=== PATIENT | female | born 1995 | race American Indian/Alaskan Native ===

== ENCOUNTER 2020-10-18 08:19 | Emergency (ER) | payer SELFPAY ==
[2020-10-18 08:30] VITALS: BP 145/98
[2020-10-18 12:08] LABS: Basophils # (Auto) 0.1 K/mm3 (0.0-0.1); Basophils % (Auto) 0.6 % (0.0-1.8); Eosinophils # (Auto) 0.1 K/mm3 (0.0-0.4); Eosinophils % (Auto) 0.7 % (0.0-4.3); Hematocrit 38.3 % (30.3-42.9); Hemoglobin 12.3 gm/dl (10.1-14.3); Lymphocytes % (Auto) 19.1 % (13.4-35.0); Mean Corpuscular HGB Conc 32 % (30-34); Mean Corpuscular Volume 72 fl (79-97); Monocytes # (Auto) 0.4 K/mm3 (0.0-0.8); Monocytes % (Auto) 3.8 % (0.0-7.3); Platelet Count 522 K/mm3 (140-440); Red Blood Count 5.33 M/mm3 (3.65-5.03); Red Cell Distribution Width 16.1 % (13.2-15.2)
[2020-10-18 12:24] LABS: Alanine Aminotransferase 20 units/L (7-56); Albumin 4.1 g/dL (3.9-5); BUN/Creatinine Ratio 13; Blood Urea Nitrogen 10 mg/dL (7-17); Calcium 9.3 mg/dL (8.4-10.2); Hemolysis Index 0
[2020-10-18] MEDS ORDERED: TETRACAINE 0.5% OPHTH SOLN 4ML OU STA (12:30)
[2020-10-18] MEDS ORDERED: FLUORESCEIN 1 MG STRIP OP ONE (12:30)
[2020-10-18] MEDS ORDERED: ACETAMINOPHEN 500 MG TAB PO ONE (12:30)
--- NOTE | 2020-10-18 12:48 | Emergency Department Report ---
ED General Adult HPI - General Chief complaint: Weakness Stated complaint: EYE PAIN;BACK PAIN;NAUSEA PUI?: Yes Time Seen by Provider: 10/18/20 12:29 Source: patient, EMS, RN notes reviewed Mode of arrival: Ambulatory Limitations: No Limitations - History of Present Illness Initial comments: The patient was evaluated in the emergency department for symptoms described in the history of present illness. He/she was evaluated in the context of the global COVID-19 pandemic, which necessitated consideration that the patient might be at risk for infection with the virus that causes COVID-19. Institutional protocols and algorithms that pertain to the evaluation of patients at risk for COVID-19 are in a state of rapid change based on information released by regulatory bodies including the CDC and federal and state organizations. These policies and algorithms were followed during the patient's care in the emergency department. Please note that these policies, procedures and recommendations changed on a rapid basis. During the entire history and physical examination, I had on complete personal protective equipment. The patient is a 25-year-old female. She is not known to myself previously. She states that she is not , and has not delivered to give her in the past 6 weeks. She does not have a primary care doctor, and denies chronic medical conditions. The patient presents during the midst of the 2022 2020 COVID-19 pandemic. She presents with a complaint of body aches, diarrhea, sore throat, burning eyes, headache, malaise and fatigue. No loss of taste or smell. No chest pain. Positive nausea. No urinary symptoms. Positive dry cough. Has not really taken anything [id number] for this. Does not wear contact lenses. No ocular trauma. No loss of vision. No chemical exposure to the eyes. Symptoms present for 5 to 7 days. -: Gradual, days(s) Location: head, eyes, back, left, right, upper extremity, lower extremity Severity scale (0 -10): 6 Quality: aching Consistency: constant Improves with: none Worsens with: movement - Related Data Previous Rx's Medication Instructions Recorded Last Taken Type Acetaminophen [Non-Aspirin Extra 500 mg PO Q6HR PRN #30 tablet 10/18/20 Unknown Rx Strength] Albuterol Sulfate [Proair 90 mcg IH Q4HR PRN #2 aer.pow.ba 10/18/20 Unknown Rx Respiclick] Ondansetron [Zofran Odt] 4 mg PO Q8HR PRN #20 tab.rapdis 10/18/20 Unknown Rx Allergies Allergy/AdvReac Type Severity Reaction Status Date / Time No Known Allergies Allergy Unverified 10/18/20 08:26 ED Review of Systems ROS: Stated complaint: EYE PAIN;BACK PAIN;NAUSEA Other details as noted in HPI Constitutional: diaphoresis, malaise, weakness Eyes: eye pain. denies: eye discharge ENT: throat pain, congestion Respiratory: cough Gastrointestinal: nausea. denies: abdominal pain Musculoskeletal: back pain, arthralgia, myalgia Neurological: headache ED Past Medical Hx - Past Medical History Previous Medical History?: No - Surgical History Past Surgical History?: No - Social History Smoking Status: Never Smoker Substance Use Type: None - Medications Home Medications: Home Medications Medication Instructions Recorded Confirmed Last Taken Type Acetaminophen [Non-Aspirin Extra 500 mg PO Q6HR PRN #30 tablet 10/18/20 Unknown Rx Strength] Albuterol Sulfate [Proair 90 mcg IH Q4HR PRN #2 aer.pow.ba 10/18/20 Unknown Rx Respiclick] Ondansetron [Zofran Odt] 4 mg PO Q8HR PRN #20 tab.rapdis 10/18/20 Unknown Rx ED Physical Exam - General Limitations: No Limitations General appearance: alert, in no apparent distress - Head Head exam: Present: atraumatic, normocephalic - Eye Eye exam: Present: normal appearance (There is a negative Kelly sign. There is negative fluorescein uptake. There is no direct or consensual photophobia.), PERRL, EOMI, other (Visual acuity intact to finger counting, color perception, reading at a close distance). Absent: scleral icterus, conjunctival injection, nystagmus, periorbital swelling, periorbital tenderness Pupils: Absent: irregular, unequal - ENT ENT exam: Present: normal exam, normal orophraynx, mucous membranes moist, normal external ear exam - Neck Neck exam: Present: normal inspection, full ROM. Absent: tenderness, meningismus - Respiratory Respiratory exam: Present: normal lung sounds bilaterally. Absent: respiratory distress, wheezes, rales, rhonchi, stridor, decreased breath sounds - Cardiovascular Cardiovascular Exam: Present: regular rate, normal rhythm, normal heart sounds. Absent: bradycardia, tachycardia, irregular rhythm, systolic murmur, diastolic murmur, rubs, gallop - GI/Abdominal GI/Abdominal exam: Present: soft. Absent: distended, tenderness, guarding, rebound, rigid, pulsatile mass - Extremities Exam Extremities exam: Present: normal inspection, full ROM, other (2+ pulses noted in the bilateral upper and lower extremities. There is no palpable cord. negative Homans sign. Muscular compartments are soft. The pelvis is stable.). Absent: pedal edema, calf tenderness - Back Exam Back exam: Present: normal inspection, full ROM. Absent: tenderness, CVA tenderness (R), CVA tenderness (L), paraspinal tenderness, vertebral tenderness - Neurological Exam Neurological exam: Present: alert, oriented X3, normal gait, other (No facial droop. Tongue midline. Extraocular movements intact bilaterally. Facial sensation intact to light touch in V1, V2, V3 distribution bilaterally. 5 and a 5 strength in 4 extremities. Sensation intact to light touch in 4 extremi ties.). Absent: motor sensory deficit - Psychiatric Psychiatric exam: Present: normal affect, normal mood - Skin Skin exam: Present: warm, dry, intact, normal color. Absent: rash ED Course Vital Signs 10/18/20 10/18/20 08:26 12:38 Temperature 97.9 F Pulse Rate 107 H Respiratory 20 18 Rate Blood Pressure 145/98 O2 Sat by Pulse 96 Oximetry ED Medical Decision Making - Lab Data Result diagrams: 10/18/20 11:41 10/18/20 11:41 Vital Signs 10/18/20 10/18/20 08:26 12:38 Temperature 97.9 F Pulse Rate 107 H Respiratory 20 18 Rate Blood Pressure 145/98 O2 Sat by Pulse 96 Oximetry Lab Results 10/18/20 10/18/20 10/18/20 Range/Units 11:41 11:41 11:41 WBC 10.6 (4.5-11.0) K/mm3 RBC 5.33 H (3.65-5.03) M/mm3 Hgb 12.3 (10.1-14.3) gm/dl Hct 38.3 (30.3-42.9) % MCV 72 L (79-97) fl MCH 23 L (28-32) pg MCHC 32 (30-34) % RDW 16.1 H (13.2-15.2) % Plt Count 522 H (140-440) K/mm3 Lymph % (Auto) 19.1 (13.4-35.0) % [place] % (Auto) 3.8 (0.0-7.3) % Eos % (Auto) 0.7 (0.0-4.3) % Baso % (Auto) 0.6 (0.0-1.8) % Lymph # (Auto) 2.0 (1.2-5.4) K/mm3 [place] # (Auto) 0.4 (0.0-0.8) K/mm3 Eos # (Auto) 0.1 (0.0-0.4) K/mm3 Baso # (Auto) 0.1 (0.0-0.1) K/mm3 Seg Neutrophils % 75.8 H (40.0-70.0) % Seg Neutrophils # 8.1 H (1.8-7.7) K/mm3 Sodium 139 (137-145) mmol/L Potassium 4.0 (3.6-5.0) mmol/L Chloride 104.0 (98-107) mmol/L Carbon Dioxide 27 (22-30) mmol/L Anion Gap 12 mmol/L BUN 10 (7-17) mg/dL Creatinine 0.8 (0.6-1.2) mg/dL Estimated GFR > 60 ml/min BUN/Creatinine Ratio 13 % Glucose 87 (65-100) mg/dL Calcium 9.3 (8.4-10.2) mg/dL Total Bilirubin 0.60 (0.1-1.2) mg/dL AST 17 (5-40) units/L ALT 20 (7-56) units/L Alkaline Phosphatase 88 (35-129) units/L Total Protein 7.9 (6.3-8.2) g/dL Albumin 4.1 (3.9-5) g/dL Albumin/Globulin Ratio 1.1 % Lipase 30 (13-60) units/L HCG, Qual Negative (Negative) - Medical Decision Making Differential diagnosis, including but not limited to: Viral syndrome, COVID-19 Assessment and plan: 25-year-old female, who is afebrile, with reassuring vital signs, tachycardia resolved on my examination, with probable COVID-19 symptomatology. She is not hypoxic, she walks with a steady gait, breath sounds are clear, and she is not in any acute distress. She is playing on her cellular phone. Ocular exam shows pupils equally reactive to light bilaterally, without direct or consensual photophobia, visual acuity intact to finger counting, color perception, reading at a close distance there is no Kelly sign, there is negative fluorescein uptake, and the globes themselves are nontender to palpation. Patient has a supple neck with no meningeal signs, and does not appear to be in any acute distress. Patient counseled that she is likely experiencing also a history of COVID-19. We discussed self-monitoring, purchase of [id number] pulse oximetry, supportive care, and return precautions., Critical care attestation.: If time is entered above; I have spent that time in minutes in the direct care of this critically ill patient, excluding procedure time. ED Disposition Clinical Impression: Suspected 2019 novel coronavirus infection Disposition: DC-01 TO HOME OR SELFCARE Is pt being admited?: No Does the pt Need Aspirin: No Condition: Good Instructions: COVID-19 Additional Instructions: As we discussed, the patient most likely has novel coronavirus/COVID. the symptoms of COVID will typically persist 10 to 14 days. There is no cure at this time for COVID. Please make certain to self isolate and self quarantine, follow-up with an outpatient primary care doctor within the next 3 to 5 days, wash hands with soap and water frequently, thoroughly and often, patient may take the prescribed medications as needed and directed. Advance diet and drink plenty of fluids as tolerated. Avoid interactions with the very elderly, very young, and those with chronic medical conditions. Return to the emergency room right away with new pain, worsening pain, migration of pain, projectile vomiting, change in mental status, confusion, inability to tolerate liquid feeds, new, worsened or different symptoms not present on the initial emergency room evaluation. Recommend that patient purchase an [id number] pulse oximeter, such as those that can be purchased on an agency/website like [employer], or any pharmacy, and self monitor home oxygen saturation. Return to the emergency room if oxygen saturation goes below 92%. Patient may also purchase artificial tears [id number], use them for sensation of ocular discomfort as often as she likes. Referrals: PANCHO JEFFERSON MD [Staff Physician] - 3-5 Days Forms: Work/School Release Form(ED)
== END 2020-10-18 13:15 | disposition home or self-care (01) ==
LOC: ED 08:19
DX: R51.9 Headache, unspecified (principal); R19.7 Diarrhea, unspecified; M79.10 Myalgia, unspecified site; Z20.828 Contact with and (suspected) exposure to other viral communicable diseases; Z79.899 Other long term (current) drug therapy
CPT/HCPCS: 36415; 80053; 83690; 84703; 85025